=== PATIENT | male | born 1980 | race Caucasian/White ===

== ENCOUNTER 2020-07-11 20:46 | Emergency (ER) | payer OTHER ==
[~2020-07-11] VITALS: Ht 193 cm; Wt 120.2 kg
== END 2020-07-12 00:18 | disposition home or self-care (01) ==
LOC: ER 20:46
DX: S29.012A Strain of muscle and tendon of back wall of thorax, initial encounter (principal); X50.0XXA Overexertion from strenuous movement or load, initial encounter
CPT/HCPCS: 71100; 96372; 99283-25; A9270; J1885

== ENCOUNTER 2021-04-29 19:18 | Emergency (ER) | payer OTHER ==
[~2021-04-29] VITALS: Ht 193 cm; Wt 119.8 kg
[2021-04-29] MEDS ORDERED: CLAR500 (23:00)
[2021-04-29] MEDS ORDERED: ELIQUIS5 M2 PO (23:13)
== END 2021-04-29 23:21 | disposition home or self-care (01) ==
LOC: ER 19:18
DX: I82.461 Acute embolism and thrombosis of right calf muscular vein (principal); I82.811 Embolism and thrombosis of superficial veins of right lower extremity; I82.4Z1 Acute embolism and thrombosis of unspecified deep veins of right distal lower extremity; Z79.01 Long term (current) use of anticoagulants
CPT/HCPCS: 93971; A9270

== ENCOUNTER 2023-10-06 20:20 | Emergency (ER) | payer OTHER ==
[~2023-10-06] VITALS: Ht 193 cm; Wt 121.1 kg
[~2023-10-06 20:20] MED LIST: CLAR500; ELIQUIS5 M2 PO
[2023-10-06 20:45] VITALS: BP 150/116
[2023-10-06] MEDS ORDERED: Indomethacin50 MG PO (21:30)
[2023-10-06] MEDS ORDERED: PredniSONE 20 MG Tab PO ONE (21:30)
[2023-10-06] MEDS ORDERED: Ketorolac Tromethamine 30mg Vial IM ONE (21:30)
[2023-10-06] MEDS ORDERED: Prednisone20 MG PO (21:30)
== END 2023-10-06 21:45 | disposition home or self-care (01) ==
LOC: ER 20:20
DX: M10.9 Gout, unspecified (principal); Z88.0 Allergy status to penicillin; Z88.2 Allergy status to sulfonamides; Z79.01 Long term (current) use of anticoagulants; Z87.828 Personal history of other (healed) physical injury and trauma
CPT/HCPCS: 73620; 96372; 99283-25; J1885; J7512

== ENCOUNTER 2024-06-16 17:45 | Observation (INO) | payer OTHER ==
[~2024-06-16] VITALS: Ht 193 cm; Wt 122.5 kg
[~2024-06-16 17:45] MED LIST changes: +Indomethacin50 MG PO; +Prednisone20 MG PO
[2024-06-16 18:57] LABS: BASOPHILS ABSOLUTE AUTO 0.05 K/mm3 (0.00-0.23); BASOPHILS PERCENT AUTO 0 % (0-2); EOSINOPHILS ABSOLUTE AUTO 0.27 K/mm3 (0.00-0.68); EOSINOPHILS PERCENT AUTO 2 % (0-6); Hemoglobin 16.9 g/dL (13.5-17.5); IMMATURE GRAN ABSOLUTE AUTO 0.03 K/mm3 (0.00-0.10); IMMATURE GRAN PERCENT AUTO 0 % (0-1); LYMPHOCYTES ABSOLUTE AUTO 1.83 K/mm3 (0.84-5.20); LYMPHOCYTES PERCENT AUTO 16 % (21-46); MONOCYTES ABSOLUTE AUTO 0.93 K/mm3 (0.16-1.47); MONOCYTES PERCENT AUTO 8 % (4-13); Mean Corpuscular HGB 31.2 pg (26.0-34.0); Mean Corpuscular HGB Conc 34.5 g/dL (31.5-36.5); Mean Corpuscular Volume 91 fL (80-100); Mean Platelet Volume 9.3 fL (9.1-12.4); NEUTROPHILS ABSOLUTE AUTO 8.71 K/mm3 (1.96-9.15); NEUTROPHILS PERCENT AUTO 74 % (41-73); Platelet Count 290 K/mm3 (150-400); RDW Coefficient Variation 12.7 % (11.7-14.2); RDW Standard Deviation 42.3 fL (35.1-46.3); Red Blood Cell Count 5.41 M/mm3 (4.30-5.90); White Blood Cell Count 11.82 K/mm3 (4.00-11.30)
[2024-06-16 19:35] LABS: Albumin, Blood 4.5 g/dL (3.4-5.0); Albumin/Globulin Ratio 1.5 (0.8-1.8); Bilirubin, Total 1.6 mg/dL (0.1-1.0); Bun/Creatinine Ratio 14.6 (12.0-20.0); Calcium, Blood 9.8 mg/dL (8.5-10.1); Creatinine, Blood 0.89 mg/dL (0.60-1.20); Globulin, Blood 3.1 g/dL (2.2-4.0); Potassium, Blood 3.7 mmol/L (3.5-5.5); Total Protein, Blood 7.6 g/dL (6.4-8.2)
[2024-06-16] MEDS ORDERED: CefTRIAXone Sodium 2,000 MG in NS 100 ML IV ONE (21:00)
[2024-06-16] MEDS ORDERED: Morphine Sulfate 4 MG/1 ML Injection IV ONE (21:00)
[2024-06-16] MEDS ORDERED: MetroNIDAZOLE 500MG/NS 100 ml 100 ML IV ONE (21:00)
[2024-06-16] MEDS ORDERED: Piperacillin/Tazobactam Sod 4.5 GM in NS 100 ML IV ONE (21:10)
[2024-06-16] MEDS ORDERED: Ondansetron HCl 2 MG / ML 2ML Vial IV PRN (21:15)
[2024-06-16] MEDS ORDERED: HYDROmorphone HCl/Pf 1MG SYR IV PRN (21:15)
[2024-06-16] MEDS ORDERED: D5W-1/2NS KCl 20mEq 1,000 ML IV SCH (21:15)
[2024-06-16 22:48] VITALS: BP 130/94
--- NOTE | 2024-06-16 23:21 | NUR ---
ARRIVAL TO UNIT PT ARRIVED VIA W/C TO RM 224. PT ABLE TO GET INTO BED IND. PT MILDLY DISTENDED AND TENDER TO PALP. PT PAIN INC WITH MOVEMENT, STATES IS FINE WHEN NOT MOVING. GAVE SNACK TO PT, WILL BE NPO AT ID FOR POSSIBLE SUGERY TOMORROW. ORIENTED TO CALL LIGHT AND ROOM. NO OTHER NEEDS AT THIS TIME, CALL LIGHT WITHIN REACH
[2024-06-17] VITALS (13 sets, daily range): BP systolic 116–152; BP diastolic 76–97
[2024-06-17] MEDS ORDERED: Piperacillin/Tazobactam Sod 4.5 GM in NS 100 ML IV SCH (02:00)
--- NOTE | 2024-06-17 04:18 | NUR ---
SHIFT SUMMARY NO ACUTE CHANGES SINCE COMING TO THE FLOOR. PT RESTING. PT HAS BEEN NPO SINCE [place]. DENIES ANY PAIN OR NAUSEA. IND IN THE ROOM. SURGICAL WIPE DOWN DONE. VSS. NO OTHER CONCERNS AT THIS TIME, CALL LIGHT WITHIN REACH
[2024-06-17] MEDS ORDERED: Lactated Ringer's 1,000 ML IV SCH ×2 (07:35→11:50)
[2024-06-17] MEDS ORDERED: FLU VACC TS2024-25(6MOS UP)/PF 45 MCG/0.5 ML SYRINGE IM PRN (07:35)
[2024-06-17] MEDS ORDERED: HYDROmorphone HCl/Pf 1MG SYR IV PRN (07:35)
[2024-06-17] MEDS ORDERED: Acetaminophen 325 MG TABLET PO PRN (07:35)
[2024-06-17] MEDS ORDERED: Ondansetron HCl 2 MG / ML 2ML Vial IV PRN (07:35)
[2024-06-17] MEDS ORDERED: OxyCODONE HCL 5 MG TAB PO PRN (07:40)
[2024-06-17] MEDS ORDERED: Ketorolac Tromethamine 15mg Vial IV PRN (07:45)
[2024-06-17] MEDS ORDERED: Sennosides 8.6 MG Tab PO SCH (09:00)
--- NOTE | 2024-06-17 10:13 | NUR ---
NURSING SURG DAYSHIFT: Assumed care of pt at approx 0700. A/O, very pleasant, cooperative w/care. C/O abd pain, treating w/repositioning and meds as ordered. Ambulates independently and w/o difficulty. Skin intact w/no breakdown noted. No tele in place, HRR, 70's, SBP 120's, no c/o CP/pressure, no noted edema. L/S cta t/o, O2 sat upper 90's on RA, denies dyspnea, no noted cough. Abd mildly distended, tender w/palp, BT+, voids w/o difficulty per pt. PIV x2, D5 1/2NS w/KCL infusing at 100mls/hr at initial assessment, IV abx as scheduled. New d/o received, IV fluids changed to LR, plan for appy this shift. Care management at bedside for assessment. Pt denies any current needs or questions regarding plan of care other than possible procedure time, remains NPO. No s/s of acute distress, call light in reach. Cont to monitor for changes.
[2024-06-17] MEDS ORDERED: ALLO300 PO (11:09)
[2024-06-17] MEDS ORDERED: LOSARTAN POTASS25 M2 PO (11:09)
[2024-06-17] MEDS ORDERED: FLUT.05NI (11:10)
[2024-06-17] MEDS ORDERED: Heparin Sodium,Porcine 5,000 UNIT/0.5 ML SDV SC SCH (12:00)
[2024-06-17] MEDS ORDERED: Midazolam HCl 1MG / ML 2ML Vial ONE (12:23)
[2024-06-17] MEDS ORDERED: Midazolam HCl 1MG / ML 2ML Vial IV SCH (12:25)
[2024-06-17] MEDS ORDERED: propofoL 20 ML IV ONE (12:29)
[2024-06-17] MEDS ORDERED: FentaNYL Citrate 50 MCG/ML 2 ML Injection ONE (12:29)
[2024-06-17] MEDS ORDERED: Lidocaine HCl 2% 20 ML MDV ONE (12:30)
[2024-06-17] MEDS ORDERED: Rocuronium Bromide 10 MG/ML 5ML Injection IV ONE (12:30)
[2024-06-17] MEDS ORDERED: Bupivacaine 0.5% HCl 5 MG/ML 30MLVIAL ONE (12:57)
[2024-06-17] MEDS ORDERED: Ketorolac Tromethamine 30mg Vial ONE (13:25)
[2024-06-17] MEDS ORDERED: Ondansetron HCl 2 MG / ML 2ML Vial ONE (13:25)
[2024-06-17] MEDS ORDERED: Sugammadex Sodium 200 MG/2ML SDV (100 MG/ML) ONE (13:25)
[2024-06-17] MEDS ORDERED: Dexamethasone Sod Phos 10 MG/ML 1ML VIAL ONE (13:25)
[2024-06-17] MEDS ORDERED: HYDROmorphone HCl/Pf 1MG SYR ONE (13:34)
[2024-06-17] MEDS ORDERED: ACET325 PO (13:57)
[2024-06-17] MEDS ORDERED: OXAYDO5 M1 PO (13:58)
--- NOTE | 2024-06-17 17:53 | NUR ---
NURSING SURG DAYSHIFT SUMMARY: Pt returned for day surgery early afternoon. Post procedure VS stable and pt followed recovery instructions. Abd lap site x3 stable w/o swelling/oozing. Tolerated PO intake w/o c/o N/V, required no pain management post procedure, and was able to dress independently as well as ambulate w/o difficulty. CN currently at bedside providing discharge instructions, pt agreeable to discharge home w/o concern. No s/s of acute distress at this time, cont to monitor until discharge home is completed.
[2024-06-18] MEDS ORDERED: Enoxaparin 40 MG/0.4 ML SYR SC SCH (09:00)
[2024-06-18] MEDS ORDERED: Allopurinol 300 MG Tab PO SCH (09:00)
[2024-06-18] MEDS ORDERED: Losartan Potassium 25 MG Tab PO SCH (09:00)
== END 2024-06-17 18:00 | disposition home or self-care (01) ==
LOC: ER 17:45 → SURS 17:46 → ER 21:14 → SURS 21:14
PROVIDERS: Physician Assistant; Surgery; ADMIT Surgery
PROC: 0DTJ4ZZ Resection of Appendix, Percutaneous Endoscopic Approach (ICD-10-PCS; principal; 2024-06-17 12:00)
DX: K35.80 Unspecified acute appendicitis (principal); K38.1 Appendicular concretions; I10 Essential (primary) hypertension; M10.9 Gout, unspecified; Z79.01 Long term (current) use of anticoagulants; Z79.52 Long term (current) use of systemic steroids; Z79.899 Other long term (current) drug therapy; Z86.718 Personal history of other venous thrombosis and embolism; Z87.891 Personal history of nicotine dependence; Z88.0 Allergy status to penicillin; Z88.2 Allergy status to sulfonamides
CPT/HCPCS: 74177; 80053; 83605; 85025; 88304; 96372; 96374; 96374-59; 96375; 99285-25; A9270; G0378; J1100; J1171; J1644; J1885; J2250; J2270; J2405; J2543; J2704; J3010; J7120; Q9967